=== PATIENT | male | born 1935 | race African-American/Black ===

== ENCOUNTER 2018-01-17 09:34 | Inpatient (IN) | payer OTHER, BC ==
[2018-01-16 13:19] VITALS: BMI 29.9
[2018-01-17] MEDS ORDERED: MIDAZOLAM HCL 2 MG/2 ML SINGLE DOSE VIAL ONE ×2 (10:21→11:41)
[2018-01-17] MEDS ORDERED: PROPOFOL 20 ML ONE ×3 (11:43→12:59)
[2018-01-17] MEDS ORDERED: SUCCINYLCHOLINE CHLORIDE 200 MG/10 ML VIAL ONE (11:43)
[2018-01-17] MEDS ORDERED: VANCOMYCIN 1,000 MG VIAL (RESTRICTED TO ID ONLY) IVPB ONE (11:48)
[2018-01-17] MEDS ORDERED: IOHEXOL 300 MG/ML INFUS..BTL IJ ONE (12:13)
[2018-01-17] MEDS ORDERED: ROCURONIUM BROMIDE 50 MG/5 ML VIAL ONE (13:01)
--- NOTE | 2018-01-17 13:03 | OP ---
Operative Note - Note: Operative Date: 01/17/18 Pre-Operative Diagnosis: bladder neck contracture, bladder stones Operation: cysto/dilation of BNC, laser litho of prostatic urethral stone and bladder stone Findings: recessed cavity prostatic urethra with stone Surgeon: Maco Kirk Anesthesia: General Specimens Removed: stone frags Estimated Blood Loss (mls): 5 Operative Report Dictated: Yes
[2018-01-17] MEDS ORDERED: DEXTROSE 5%-0.45% SALINE 1,000 ML IV SCH (13:15)
[2018-01-17] MEDS ORDERED: ONDANSETRON 4 MG/2 ML VIAL IVPUSH PRN (13:24)
--- NOTE | 2018-01-17 13:29 | OP ---
DATE OF OPERATION: 01/17/2018 PREOPERATIVE DIAGNOSES: Bladder neck contracture and bladder stones. POSTOPERATIVE DIAGNOSIS: Bladder neck contracture, recess cavity, and prostatic urethra filled with bladder stone. SURGEON: Joellen Li MD PROCEDURE: Cystoscopy, laser lithotripsy of prostate and bladder stones, dilation of bladder neck contracture, and Swanson catheter insertion. INDICATION: Patient is an 82-year-old male with urinary incontinence. On cystoscopy, noted to have stones obstructing the bladder neck with what appeared to be bladder neck contracture. He is taken to the OR for treatment of the stones. DESCRIPTION OF PROCEDURE: Patient taken to the OR, placed supine on the operating table. After cardiac monitoring administered and general anesthesia established, he was prepped and draped in the dorsal position. He was given 1 g of vancomycin. At this point, a flexible cystoscope was inserted into the urethra. There was sort of panurethral narrowing. However, the scope could go through the urethra unto the bladder neck and there was a very narrow opening at the bladder neck and it was blocked with stone. A guidewire was advanced beyond this area into the bladder. This was confirmed with fluoroscopy, and then, over the guidewire, the contracture was dilated to about 20-[place]. Then, alongside the wire, a scope was advanced, and what appeared to be bladder neck contracture was actually contracture at the prostatic urethra. Then, just beyond the area of contracture that was dilated of the prostatic urethra was sort of a recessed, enlarged cavity that was lined with multiple large stones. Using the 1000 micron laser fiber through the flexible scope, the stones were all pulverized to fine dust and 2-3 mm fragments that were then evacuated out. Once the stones were removed, the scope was able to be advanced into the bladder. The bladder appeared erythematous and irritated. There were some stones in the bladder as well, and these were lasered as well and then irrigated out. Cystoscope was then removed, and an 18-[place]ill-tip catheter was then placed over the remaining guidewire and the guidewire removed. Patient was then awoken from anesthesia and transferred to Recovery in stable condition. There were no complications. Estimated blood loss was minimal. JOELLEN LI M.D. [id number]
[2018-01-17] MEDS ORDERED: LACTATED RINGERS SOLUTION 1,000 ML IV SCH (13:30)
[2018-01-17] MEDS ORDERED: ACETAMINOPHEN INJECTION 100 ML IVPB ONE (14:26)
[2018-01-17] MEDS ORDERED: ACETAMINOPHEN 1000 MG/100 ML VIAL (NON FORMULARY) IVPB ONE ×2 (14:30→16:00)
[2018-01-17] MEDS: SIMETHICONE 40 MG/0.6 ML BOTTLE PO PRN (17:05)
[2018-01-17] MEDS: oxyCODONE HCL 5 MG TABLET PO PRN (19:58)
[2018-01-17] MEDS ORDERED: ATORVASTATIN CA 40 MG TABLET (FP) PO SCH (22:00)
[2018-01-18] MEDS: oxyCODONE HCL 5 MG TABLET PO PRN ×2 (02:57→07:41)
[2018-01-18] MEDS ORDERED: LEVOTHYROXINE NA 100 MCG TABLET (FP) PO SCH (07:00)
[2018-01-18] MEDS ORDERED: metFORMIN HCL 500 MG TABLET (FP) PO SCH (07:00)
[2018-01-18] MEDS ORDERED: PT OWN MED DRAWER 7, Y5N ONE (09:48)
[2018-01-18] MEDS: SIMETHICONE 40 MG/0.6 ML BOTTLE PO PRN (09:49)
[2018-01-18] MEDS ORDERED: CLOPIDOGREL BISULFATE 75 MG TABLET (FP) PO SCH (10:00)
[2018-01-18] MEDS ORDERED: amLODIPine BESYLATE 10 MG TABLET (FP) PO SCH (10:00)
[2018-01-18] MEDS ORDERED: ASPIRIN 81 MG CHEWABLE TABLETS PO SCH (10:00)
[2018-01-18] MEDS ORDERED: LOSARTAN 50MG/HCTZ 12.5MG 1 TAB (FP) PO SCH (10:00)
[2018-01-18 13:53] VITALS: BP 127/62; PULSE 89; TEMP 97.9
--- NOTE | 2018-01-22 15:46 | PATH ---
Surgical Pathology Report Patient Name: SHANKAR RODRIGUEZ Med. Rec. #: [id number] /Age/Gender: 1935 (Age: 82) / M Account: [id number] Location: [address] [place] [address]/[facility] Taken: 01/17/2018 Received: 01/18/2018 Reported: 01/22/2018 Physicians: Maco Kirk M.D. Specimen(s) Received URINIARY BLADDER STONES Clinical History Bladder stone/BPH Final Diagnosis URINARY BLADDER, STONES, CYSTOSCOPY AND REMOVAL: ACUTE INFLAMMATORY EXUDATE AND SCANT FRAGMENTS OF SQUAMOUS EPITHELIUM. NO DEFINITIVE CALCULI IDENTIFIED. FUNGAL SPECIAL STAIN (PAS) IS NEGATIVE. Electronically Signed Kerry Maki M.D. Gross Description Received in formalin labeled "urinary bladder stones," is a 0.4 x 0.3 x 0.1 cm aggregate of mittal soft tissue fragments. No definite calculi are identified. The specimen is entirely submitted in one cassette. /01/18/2018 [facility]01/18/2018
== END 2018-01-18 16:41 | disposition home or self-care (01) | DRG 694 ==
LOC: JASU-SURG 09:34 → J6S 19:00 → JASU-SURG 19:01 → J6S 19:01
PROVIDERS: ADMIT Urology; ATTEND Urology
PROC: 0TCD8ZZ Extirpation of Matter from Urethra, Via Natural or Artificial Opening Endoscopic (ICD-10-PCS; 2018-01-17)
PROC: 0T9B80Z Drainage of Bladder with Drainage Device, Via Natural or Artificial Opening Endoscopic (ICD-10-PCS; 2018-01-17)
PROC: 0T7C8ZZ Dilation of Bladder Neck, Via Natural or Artificial Opening Endoscopic (ICD-10-PCS; principal; 2018-01-17 11:00)
PROC: 0TCB8ZZ Extirpation of Matter from Bladder, Via Natural or Artificial Opening Endoscopic (ICD-10-PCS; 2018-01-17 11:00)
DX: N21.0 Calculus in bladder (principal); N32.0 Bladder-neck obstruction; N32.89 Other specified disorders of bladder; N21.1 Calculus in urethra
CPT/HCPCS: 76000-TC-FY; 82962; 88300-TC; 94760; J0131